=== PATIENT | female | born 1945 | race Caucasian/White ===

== ENCOUNTER 2018-04-19 10:00 | Outpatient (REF) | payer MEDICARE, SELFPAY ==
[2018-04-19 12:42] LABS: TSH (W/Ref FT4) 0.61 uIU/mL (0.358-3.74)
== END 2018-04-19 10:20 ==
LOC: NCHCN 10:00
PROVIDERS: PCP Family Medicine; Visit Provider Family Medicine
DX: E04.9 Nontoxic goiter, unspecified (principal)
CPT/HCPCS: 84443

== ENCOUNTER 2018-04-26 00:26 | Outpatient (CLI) | payer MEDICARE, SELFPAY ==
--- NOTE | 2018-04-26 11:30 | DI.MAMMO_ITS ---
SYMPTOM/DIAGNOSIS: SCREENING, Z12.31 MAMMOGRAMS: Mammograms were interpreted according to the usual protocol including computer analysis with CAD system, tomosynthesis and C view imaging. Comparison with prior examinations. Breast density B. No masses or microcalcifications are seen. There is nothing to suggest malignancy. IMPRESSION: Negative mammogram. Routine screening is recommended. Category I. MQSA ASSESSMENT OF FINDINGS: Negative. Category 1. Patient will receive a letter notifying them of these results. BI-RADS category B. There are scattered areas of fibroglandular density.
== END 2018-04-26 00:46 ==
PROVIDERS: PCP Family Medicine; Visit Provider Family Medicine
DX: Z12.31 Encounter for screening mammogram for malignant neoplasm of breast (principal)
CPT/HCPCS: 77063; 77067

== ENCOUNTER 2018-10-15 02:15 | Outpatient (CLI) | payer MEDICARE, SELFPAY ==
[2018-10-15 10:55] LABS: ALT 25 U/L (12-78); AST 20 U/L (15-37); Albumin 3.5 g/dL (3.4-5.0); Alkaline Phosphatase 84 U/L (46-116); Anion Gap 9.8 mmol/L (3-11); BUN 9 mg/dL (7-18); Bilirubin, Total 0.5 mg/dL (0.2-1.0); CO2 28.2 mmol/L (21.0-32.0); CREATININE 0.75 mg/dL (0.55-1.02); Calcium 9.5 mg/dL (8.5-10.1); Chloride 104 mmol/L (98-107); Cholesterol 197 mg/dL (50-200); Glucose 95 mg/dL (70-100); HDL Cholesterol 57 mg/dL (40-60); LDL CHOLESTEROL 114 mg/dL (<100); Potassium 4.2 mmol/L (3.5-5.1); Sodium 142 mmol/L (136-145); Total Protein 6.8 g/dL (6.4-8.2); Triglyceride 146 mg/dL (30-150)
== END 2018-10-15 02:35 ==
PROVIDERS: PCP Family Medicine; Visit Provider Family Medicine
DX: I10 Essential (primary) hypertension (principal); E04.9 Nontoxic goiter, unspecified; E78.5 Hyperlipidemia, unspecified; E66.9 Obesity, unspecified
CPT/HCPCS: 36415; 80053; 80061; 83721

== ENCOUNTER 2019-05-21 01:10 | Outpatient (CLI) | payer MEDICARE, SELFPAY ==
--- NOTE | 2019-05-21 12:33 | DI.MAMMO_ITS ---
EXAM: MG MAMMO SCREENING CLINICAL HISTORY: SCREENING Z12.31 TECHNIQUE: Bilateral full field digital CC and MLO mammographic images were obtained with 3D tomosyn thesis and utilizing computer aided detection (CAD). COMPARISON: Available for comparison. FINDINGS: Masses/Architectural Distortion: No suspicious masses are seen. Microcalcifications: No suspicious pleomorphic-type are seen. Skin Thickening/Nipple Retraction: None. IMPRESSION: 1. No significant interval change with no specific features of malignancy noted. 2. Unless there is more urgent need, screening mammography is recommended, as per [place] guidelines. ACR BI-RAD Category- 1 Negative Breast Density - Category B - Scattered areas of fibroglandular density A negative radiographic report should not delay biopsy if a dominant or clinically suspicious mass is present. Up to ten percent of cancers are not identified on mammography. A negative report may reinforce clinical impression. Adenosis and dense breasts may obscure an underlying neoplasm. False positive reports average 6 to 10%. Patient will receive a letter notifying them of these results.
== END 2019-05-21 01:30 ==
PROVIDERS: PCP Family Medicine; Visit Provider Family Medicine
DX: Z12.31 Encounter for screening mammogram for malignant neoplasm of breast (principal)
CPT/HCPCS: 77063; 77067

== ENCOUNTER 2020-03-05 04:23 | Outpatient (CLI) | payer MEDICARE, SELFPAY ==
[2020-03-05 08:09] LABS: HCT 46.2 % (36.0-46.0); HGB 15.1 g/dL (11.2-15.7); MCH 30.4 pg (27.0-33.0); MCHC 32.7 % (32.0-36.0); MCV 93.1 fL (80-95); MPV 9.4 fL (8.0-11.0); Platelet Count 249 10^3/uL (130-400); RBC 4.96 10^6/uL (3.93-5.22); RDW 12.7 % (11.7-14.6); RDW-SD 43.3 fL; WBC 6.43 10^3/uL (4.4-10.8)
[2020-03-05 09:03] LABS: ALT 31 U/L (14-59); AST 22 U/L (15-37); Albumin 3.9 g/dL (3.4-5.0); Alkaline Phosphatase 87 U/L (46-116); Anion Gap 6.9 mmol/L (3-11); BUN 12 mg/dL (7-18); Bilirubin, Total 0.7 mg/dL (0.2-1.0); CO2 30.1 mmol/L (21.0-32.0); CREATININE 0.72 mg/dL (0.55-1.02); Calcium 9.5 mg/dL (8.5-10.1); Calculated LDL 113 mg/dL (<100); Chloride 103 mmol/L (98-107); Cholesterol 202 mg/dL (<200); Glucose 100 mg/dL (74-106); HDL Cholesterol 60 mg/dL (40-60); Potassium 4.3 mmol/L (3.5-5.1); Sodium 140 mmol/L (136-145); Total Protein 7.2 g/dL (6.4-8.2); Triglyceride 149 mg/dL (<150)
[2020-03-05 15:38] LABS: TSH 0.82 uIU/mL (0.36-3.74)
== END 2020-03-05 04:43 ==
PROVIDERS: PCP Family Medicine; Visit Provider Family Medicine
DX: I10 Essential (primary) hypertension (principal); E78.5 Hyperlipidemia, unspecified; E04.9 Nontoxic goiter, unspecified
CPT/HCPCS: 36415; 80053; 80061; 85027; 84443

== ENCOUNTER 2020-07-06 01:21 | Outpatient (CLI) | payer MEDICARE, SELFPAY ==
[2020-07-06 14:08] LABS: CREATININE 0.82 mg/dL (0.55-1.02)
[2020-07-06] MEDS: Normal Saline Flush 10 ML SYR IVP (14:22)
[2020-07-06] MEDS: Gadoterate meglumine 20 ML VIAL 16 ML IVP (14:23)
--- NOTE | 2020-07-06 14:50 | DI.MRI_ITS ---
EXAM: MR BRAIN WO/W CLINICAL HISTORY: F/U BRAIN MASS/LESION,NEOPLASM,D49.6. TECHNIQUE: Multiplanar multisequence MRI of the brain was performed. CONTRAST MATERIAL: IV Contrast: ML of Dotarem contrast administered. COMPARISON: MR MRI BRAIN (SKULL BASE) WITH AND WITHOUT CONTRAST from 06/28/2019 FINDINGS: VENTRICLES AND EXTRA AXIAL SPACES: Ventricles and sulci are stable compared to the prior examination. HEMORRHAGE: None. CEREBRAL PARENCHYMA: No focus of restricted diffusion to suggest acute infarct. No space-occupying le negar identified. 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 No new or residual mass is identified. There is stable postsurgical hand enhancemen t along the craniotomy site. The small focal nodular enhancement along the medial aspect of the righ t middle cranial fossa previously discussed is less prominent on the current examination. There is s cattered foci of hyperintense signal in the white matter on the FLAIR and T2 weighted images likely r eflecting small vessel ischemic disease. MIDLINE SHIFT: None. BRAINSTEM/CEREBELLUM: Normal. CALVARIUM: Post craniotomy changes involving the left frontal and parietal bones. ENHANCEMENT: Please see above. VISUALIZED PARANASAL SINUSES: Clear. OTHER FINDINGS: None. IMPRESSION: Stable postoperative changes. No evidence suggests a new or recurrent mass. DATA REPOSITORY:
== END 2020-07-06 01:41 ==
PROVIDERS: PCP Family Medicine; Visit Provider Family Medicine
DX: D49.6 Neoplasm of unspecified behavior of brain (principal)
CPT/HCPCS: 70553; 82565

== ENCOUNTER 2020-07-24 20:16 | Outpatient (REF) | payer MEDICARE, SELFPAY ==
[2020-07-26 12:45] LABS: COVID-19 RT-PCR UVMMC Result Negative (Negative)
== END 2020-07-24 20:17 | disposition home or self-care (01) ==
LOC: NCHCN 20:16
PROVIDERS: PCP Family Medicine; Visit Provider Family Medicine
DX: Z20.822 Contact with and (suspected) exposure to COVID-19 (principal)
CPT/HCPCS: U0003

== ENCOUNTER 2021-05-24 00:23 | Outpatient (CLI) | payer MEDICARE, SELFPAY ==
--- NOTE | 2021-05-24 09:14 | DI.MAMMO_ITS ---
Exam(s) MAMMO SCREENING EXAM: MAMMO SCREENING CLINICAL HISTORY: SCREENING MAMMO Z12.31. TECHNIQUE: Bilateral full field digital CC and MLO mammographic images were obtained with 3D tomosyn thesis and utilizing computer aided detection (CAD). COMPARISON: Prior mammograms dating back to 2011, the most recent being May 2019. FINDINGS: There has been no significant change in the appearance and distribution fibroglandular tissue. There are no new spiculated masses nor malignant appearing microcalcification groups. There is no significant architectural distortion nor skin thickening-retraction. IMPRESSION: No radiographic evidence of malignancy. BI-RADS Category 1 - Negative Breast Density - Category B - Scattered areas of fibroglandular density Breast density Category C or D implies that the patient has dense breast tissue. Dense breast tissue can make it harder to find cancer on a mammogram. Dense breast tissue is also associated with an incr eased risk of breast cancer. This information about the result of the mammogram report was provided to the patient to raise their awareness. Use this report when you speak with the patient about their risks for breast cancer, which includes their family history. At that time, you may recommend additional screening tests (Ultrasoun d or MRI) as these tests may add significant information. A negative radiographic report should not delay biopsy if a dominant or clinically suspicious mass is present. Up to ten percent of cancers are not identified on mammography. A negative report may reinforce clinical impression. Adenosis and dense breasts may obscure an underlying neoplasm. False positive reports average 6 to 10%. Patient will receive a letter notifying them of these results.
== END 2021-05-24 00:43 ==
PROVIDERS: PCP Family Medicine; Visit Provider Family Medicine
DX: Z12.31 Encounter for screening mammogram for malignant neoplasm of breast (principal)
CPT/HCPCS: 77063; 77067

== ENCOUNTER 2021-07-06 01:05 | Outpatient (CLI) | payer MEDICARE, SELFPAY ==
--- NOTE | 2021-07-06 | DI.MRI_ITS ---
Exam(s) MR BRAIN WO/W EXAM: MR BRAIN WO/W CLINICAL HISTORY: F/U BRAIN LESION,MENINGIOMA, D32.9 TECHNIQUE: Multiplanar multisequence MRI of the brain was performed. Both noninfused and contrast i nfused sequences were performed. IV Contrast injected was 17 cc Dotarem. COMPARISON: MR MR BRAIN WO/W from 07/06/2020 FINDINGS: There has apparently been previous resection of left clinoid region meningioma. CEREBRAL PARENCHYMA: No evidence of intracranial hemorrhage, new mass effect nor shift of midline str ucture. No new extraaxial fluid collections. Ventricles are not enlarged nor shifted. Surgical bed appears unchanged and with no new abnormal enhancing tissue at this location or elsewher e in the brain.. There is no new significant focal signal abnormality in the cerebellar hemispheres nor within the rosanne s, midbrain, and thalami. There is no abnormal new signal abnormality in the periventricular white matter. Previously described small foci of white matter signal abnormality remain unchanged and consistent wi th chronic ischemic changes. There are no new ring enhancing lesions in the brain. There is no new abnormal meningeal enhancement . SWI: Multifocal blooming signal noted in the left frontal lobe is unchanged and most probably reflect s postsurgical microhemorrhage sequelae. No evidence of new hemorrhage. PITUITARY GLAND: No mass nor parasellar abnormality. No obvious abnormality in the cavernous sinuses. FLOW VOIDS: The expected flow void are noted. No evidence of obvious aneurysm nor obvious vascular ma lformation. PARANASAL SINUSES: The visualized paranasal sinuses appear unremarkable. ORBITS: No obvious new abnormal findings. IMPRESSION: 1. No significant new intracranial findings on this MRI scan of the brain. No evidence of recurrent mass at nor distant from the surgical site 2. No new abnormal enhancing intracranial findings. DATA REPOSITORY:
[2021-07-06 12:06] LABS: CREATININE 0.7 mg/dL (0.55-1.02)
[2021-07-06] MEDS: Normal Saline Flush 10 ML SYR IVP (12:25)
[2021-07-06] MEDS: Gadoterate meglumine 20 ML VIAL IVP (12:26)
== END 2021-07-06 01:25 ==
PROVIDERS: PCP Family Medicine; Visit Provider Neurological Surgery
DX: D32.9 Benign neoplasm of meninges, unspecified (principal)
CPT/HCPCS: 70553; 82565

== ENCOUNTER 2021-11-22 15:01 | Outpatient (REF) | payer MEDICARE, SELFPAY ==
[2021-11-22 15:36] LABS: HCT 42.9 % (36.0-46.0); HGB 14.2 g/dL (11.2-15.7); MCHC 33.1 % (32.0-36.0); MCV 94 fL (80-95); MPV 10.3 fL (8.0-11.0); Platelet Count 235 10^3/uL (130-400); RBC 4.58 10^6/uL (3.93-5.22); RDW 13.2 % (11.7-14.6); RDW-SD 45.1 fL; WBC 6.31 10^3/uL (4.4-10.8)
[2021-11-22 15:53] LABS: ALT 30 U/L (14-59); AST 21 U/L (15-37); Albumin 3.7 g/dL (3.4-5.0); Alkaline Phosphatase 89 U/L (46-116); Anion Gap 8.8 mmol/L (3-11); BUN 15 mg/dL (7-18); Bilirubin, Total 0.5 mg/dL (0.2-1.0); CO2 27.2 mmol/L (21.0-32.0); CREATININE 0.7 mg/dL (0.55-1.02); Calcium 9.3 mg/dL (8.5-10.1); Calculated LDL 114 mg/dL (<100); Chloride 105 mmol/L (98-107); Cholesterol 200 mg/dL (<200); Glucose 97 mg/dL (74-106); HDL Cholesterol 67 mg/dL (40-60); Potassium 4.6 mmol/L (3.5-5.1); Sodium 141 mmol/L (136-145); TSH (W/Ref FT4) 0.62 uIU/mL (0.36-3.74); Triglyceride 99 mg/dL (<150)
== END 2021-11-22 15:02 | disposition home or self-care (01) ==
LOC: NCHCN 15:01
PROVIDERS: PCP Family Medicine; Visit Provider Family Medicine
DX: I10 Essential (primary) hypertension (principal); E78.5 Hyperlipidemia, unspecified; D32.0 Benign neoplasm of cerebral meninges
CPT/HCPCS: 80053; 80061; 85027; 84443